=== PATIENT | male | born 1985 | race Caucasian/White ===

== ENCOUNTER 2016-12-31 12:54 | Emergency (ER) | payer OTHER ==
[~2016-12-31] VITALS: Ht 185.4 cm; Wt 120.7 kg
[~2016-12-31 12:54] MED LIST: APAP/HYDROCODON1 T13 PO; AUGMENTIN PO; BAY PO; COL100 PO; FLA500 PO; METFORMIN HCL500 MG PO; ZOC10 PO
[2016-12-31 12:58] VITALS: BP 139/109
== END 2016-12-31 14:40 | disposition home or self-care (01) ==
LOC: ED 12:54
DX: S60.051A Contusion of right little finger without damage to nail, initial encounter (principal); I10 Essential (primary) hypertension; E11.9 Type 2 diabetes mellitus without complications; W22.8XXA Striking against or struck by other objects, initial encounter; Y93.89 Activity, other specified; Y99.8 Other external cause status; Y92.89 Other specified places as the place of occurrence of the external cause

== ENCOUNTER 2019-07-18 16:40 | Emergency (ER) | payer OTHER ==
[~2019-07-18] VITALS: Ht 185.4 cm; Wt 122.9 kg
[2019-07-18 16:54] VITALS: Ht 185.4 cm; Wt 122.9 kg
[2019-07-18 19:20] VITALS: BP 157/101
== END 2019-07-18 19:20 | disposition home or self-care (01) ==
LOC: ED 16:40
DX: F41.9 Anxiety disorder, unspecified (principal); F10.20 Alcohol dependence, uncomplicated; I10 Essential (primary) hypertension; Y90.9 Presence of alcohol in blood, level not specified; F17.210 Nicotine dependence, cigarettes, uncomplicated; E78.00 Pure hypercholesterolemia, unspecified; Z90.89 Acquired absence of other organs
CPT/HCPCS: J2060